=== PATIENT | male | born 1960 | race Native Hawaiian/Other Pacific Islander ===

== ENCOUNTER 2017-09-05 20:59 | Emergency (ER) | payer OTHER ==
[~2017-09-05] VITALS: Ht 170.2 cm; Wt 85.0 kg
[~2017-09-05 20:59] MED LIST: DICL50 PO; FISH1000 PO; GLUCTAB PO; LANTUSP SQ; LISI10TA PO; ROBA750T3 PO; SIMV40TA OR; TAB-TAB PO; TRAM50 PO
[2017-09-05 21:00] VITALS: BP 165/81; PULSE 90; RESP 16; TEMP 97.9; O2SAT 98
[2017-09-05] MEDS ORDERED: LISI10TA PO (21:22)
[2017-09-05] MEDS ORDERED: METF1000 PO (21:22)
[2017-09-05] MEDS ORDERED: DICL100T3 PO (21:22)
[2017-09-05] MEDS ORDERED: SIMV40TA PO (21:22)
[2017-09-05] MEDS ORDERED: LANTUS2P SQ (21:22)
[2017-09-05] MEDS ORDERED: OMEG100010 (21:22)
[2017-09-05] MEDS ORDERED: VOLT100T (21:22)
[2017-09-05] MEDS ORDERED: MULT-65 PO (21:22)
[2017-09-05 21:41] VITALS: O2SAT 96
--- NOTE | 2017-09-05 21:41 | PD ---
HPI Chief Complaint: Respiratory Symptoms Time Seen by Provider: 21:14 Travel History International Travel<30 days: No Contact w/Intl Traveler<30days: No Traveled to known affect area: No History of Present Illness HPI 57-year-old male that presents to the ED for evaluation of shortness of breath. Per patient she's had this shortness of breath for 3 days. No chest pain. Some congestion and cough with minimal. Per patient the service of or worsened today which is what prompted evaluation. Per patient gets worse with ambulating as well as with laying down. Lying down made it worse. No history of heart failure but he does have a history of diabetes and her blood pressure. He denies any injuries. He denies any abdominal pain. No nausea or vomiting. No bowel movement or urinary issues. No history of heart disease. No history of CHF. No history of COPD or asthma. No smoking history per patient. He does tell me that he recently went to [place] about 2 weeks ago on a plane. Symptoms did not start until 3 days ago. He has no allergies to medication. No other medical issues. Patient states compliance with his medications. PFSH Past Medical History Heart Rhythm Problems: No Cardiac Catheterization: No Cardiovascular Problems: Yes High Cholesterol: Yes Congestive Heart Failure: No Diabetes: Yes Patient Takes Glucophage: Yes Heparin Induced Thrombocytopen: No Hypertension: Yes Immunizations Current: Yes Tetanus Vaccination: < 5 Years Influenza Vaccination: Yes Past Surgical History Coronary Artery Bypass Graft: No Family History Family Myocardial Infarction: Yes (MOTHER OF [place] AGE 58) Social History Alcohol Use: No Tobacco Use: No Substance Use: No Allergies-Medications (Allergen,Severity, Reaction): Coded Allergies: No Known Allergies (Verified Adverse Reaction, Unknown, 09/05/17) Reported Meds & Prescriptions Reported Meds & Active Scripts Active Medrol Dosepak (Methylprednisolone) 4 Mg Dspk 4 Mg PO DIRECTED Per Pharmacist direction Zithromax Z-Rakesh (Azithromycin) 250 Mg Dspk 250 Mg PO DIRECTED 500 MG (2 tabs) day 1, then 1 tab days 2-5. Ventolin Hfa 18 GM Inh (Albuterol Sulfate) 90 Mcg/Act Aer 2 Puff INH Q4-6H PRN Reported Simvastatin 40 Mg Tab 40 Mg PO HS [place] 3 1000 mg ([place]-3 Fatty Acids) 300 Mg-1,000 Mg Cap Multi-Vitamin Daily (Multiple Vitamin) 1 Tab Tab 1 Tab PO DAILY Diclofenac Sodium ER 24 HR (Diclofenac Sodium) 100 Mg [place] 50 Mg PO TID Voltaren-Xr (Diclofenac Sodium) 100 Mg Tab.er.24h Lisinopril-Hctz 10-12.5 Mg Tab 1 Tab PO DAILY Lantus Inj (Insulin Glargine) 1,000 Unit/10 Ml Vial 30 Units SQ HS Metformin (Metformin HCl) 1,000 Mg Tab 1,000 Mg PO BIDPC Review of Systems Except as stated in HPI: all other systems reviewed are Neg Physical Exam Narrative GENERAL: Well-nourished, well-developed patient in no apparent distress. SKIN: Warm and dry. HEAD: Atraumatic. Normocephalic. EYES: Pupils equal and round reactive to light and accommodation. No scleral icterus. No injection or drainage. ENT: No nasal bleeding or discharge. Mucous membranes pink and moist. TMs are clear with no sign of infection or perforation. No mastoid tenderness. Ear canals are intact bilaterally. No lymphadenopathy. Nostril mucosa is red and moist with clear mucus noted. No sinus tenderness to palpation noted. Tonsils are not enlarged or swollen. No ulvua Deviation. Tongue is midline. NECK: Trachea midline. No JVD. No meningeal signs noted CARDIOVASCULAR: Regular rate and rhythm. RESPIRATORY: No accessory muscle use. Clear to auscultation. Breath sounds equal bilaterally. GASTROINTESTINAL: Abdomen soft, non-tender, nondistended. Hepatic and splenic margins not palpable. MUSCULOSKELETAL: Extremities without clubbing, cyanosis, or edema. No obvious deformities. Full range of motion of the upper and lower extremities bilaterally. 2+ pulses bilaterally. NEUROLOGICAL: Awake and alert. No obvious cranial nerve deficits. Motor grossly within normal limits. Five out of 5 muscle strength in the arms and legs. Normal speech. PSYCHIATRIC: Appropriate mood and affect; insight and judgment normal. Data Data Last Documented VS Vital Signs Date Time Temp Pulse Resp B/P (MAP) Pulse Ox O2 Delivery O2 Flow Rate FiO2 09/06/17 00:10 09/05/17 21:42 76 16 96 Room Air 09/05/17 21:00 97.9 Orders Orders Electrocardiogram (09/05/17 21:21) Complete Blood Count With Diff (09/05/17 21:21) Comprehensive Metabolic Panel (09/05/17 21:21) Ckmb (Isoenzyme) Profile (09/05/17 21:21) Troponin I (09/05/17 21:21) B-Type Natriuretic Peptide (09/05/17 21:21) Prothrombin Time / Inr (Pt) (09/05/17 21:21) Act Partial Throm Time (Ptt) (09/05/17 21:21) Influenzae A/B Antigen (09/05/17 21:21) Chest, Single Ap (09/05/17 21:21) Iv Access Insert/Monitor (09/05/17 21:21) Ecg Monitoring (09/05/17 21:21) Oximetry (09/05/17 21:21) D-Dimer (09/05/17 22:27) Albuterol-Ipratropium Neb (Duoneb Neb) (09/05/17 23:45) Ed Discharge Order (09/06/17 00:06) Labs Laboratory Tests Test 09/05/17 21:30 White Blood Count 7.2 TH/MM3 Red Blood Count 4.48 MIL/MM3 Hemoglobin 13.4 GM/DL Hematocrit 38.1 % Mean Corpuscular Volume 85.0 FL Mean Corpuscular Hemoglobin 29.9 PG Mean Corpuscular Hemoglobin Concent 35.2 % Red Cell Distribution Width 13.9 % Platelet Count 242 TH/MM3 Mean Platelet Volume 7.0 FL Neutrophils (%) (Auto) 53.1 % Lymphocytes (%) (Auto) 32.9 % Monocytes (%) (Auto) 7.3 % Eosinophils (%) (Auto) 6.1 % Basophils (%) (Auto) 0.6 % Neutrophils # (Auto) 3.8 TH/MM3 Lymphocytes # (Auto) 2.4 TH/MM3 Monocytes # (Auto) 0.5 TH/MM3 Eosinophils # (Auto) 0.4 TH/MM3 Basophils # (Auto) 0.0 TH/MM3 CBC Comment DIFF FINAL Differential Comment Prothrombin Time 10.3 SEC Prothromb Time International Ratio 1.0 RATIO Activated Partial Thromboplast Time 25.9 SEC D-Dimer Quantitative (PE/DVT) 0.28 MG/L FEU Blood Urea Nitrogen 13 MG/DL Creatinine 1.12 MG/DL Random Glucose 87 MG/DL Total Protein 7.3 GM/DL Albumin 3.9 GM/DL Calcium Level 8.6 MG/DL Alkaline Phosphatase 78 U/L Aspartate Amino Transf (AST/SGOT) 27 U/L Alanine Aminotransferase (ALT/SGPT) 37 U/L Total Bilirubin 0.4 MG/DL Sodium Level 138 MEQ/L Potassium Level 3.7 MEQ/L Chloride Level 104 MEQ/L Carbon Dioxide Level 23.6 MEQ/L Anion Gap 10 MEQ/L Estimat Glomerular Filtration Rate 67 ML/MIN Total Creatine Kinase 83 U/L Troponin I LESS THAN 0.02 NG/ML B-Type Natriuretic Peptide 3 PG/ML MDM Medical Decision Making Medical Screen Exam Complete: Yes Emergency Medical Condition: Yes Medical Record Reviewed: Yes Interpretation(s) EKG shows sinus rhythm with no sign of acute ischemia or arrhythmia. Read by me and attending. Differential Diagnosis Shortness of breath versus asthma versus COPD versus pneumonia versus pulmonary embolism versus ACS versus CHF versus influenza Narrative Course 57-year-old male that presents to the ED for evaluation of shortness of breath. Patient was properly examined and was found to have signs and symptoms consistent appears to be shortness of breath of unclear etiology. Patient does have risk factors for pulmonary embolism as well as heart disease. Recommend labs and imaging for this. Labs and imaging still pending at the writing of this note. Case signed out to my attending pending disposition. Scripts Methylprednisolone Dosepak (Medrol Dosepak) 4 Mg Dspk 4 MG PO DIRECTED, #1 DSPK 0 Refills Per Pharmacist direction Prov: Jordyn Tabares MD 09/06/17 Azithromycin (Zithromax Z-Rakesh) 250 Mg Dspk 250 MG PO DIRECTED for Infection, #1 DSPK 0 Refills 500 MG (2 tabs) day 1, then 1 tab days 2-5. Prov: Jordyn Tabares MD 09/06/17 Albuterol 18 GM Inh (Ventolin Hfa 18 GM Inh) 90 Mcg/Act Aer 2 PUFF INH Q4-6H Y for SHORTNESS OF BREATH, #1 INHALER 0 Refills Prov: Jordyn Tabares MD 09/06/17 Chucho Peraza Sep 05, 2017 21:41
[2017-09-05 21:42] VITALS: BP 145/77; PULSE 76; RESP 16; O2SAT 96
--- NOTE | 2017-09-05 21:58 | RADRPT ---
EXAM DATE/TIME: 09/05/2017 21:48 [facility] COMPARISON: CHEST SINGLE AP, March 19, 2011, 11:45. INDICATIONS : Shortness of breath. MEDICAL HISTORY : Hypertension. Diabetes mellitus type II. SURGICAL HISTORY : None. ENCOUNTER: Initial ACUITY: 1 day PAIN SCORE: 0/10 LOCATION: Bilateral chest FINDINGS: A single view of the chest demonstrates the lungs to be symmetrically aerated without evidence of mas s, infiltrate or effusion. The cardiomediastinal contours are unremarkable. Osseous structures are intact. CONCLUSION: No acute disease. Bright Maria MD on September 05, 2017 at 21:55 Board Certified Radiologist. This report was verified electronically.
[2017-09-05 22:12] LABS: AUTOMATED NEUTROPHIL # 3.8 TH/MM3 (1.8-7.7); BASOPHIL % 0.6 % (0.0-2.0); EOSINOPHIL # 0.4 TH/MM3 (0-0.4); EOSINOPHIL % 6.1 % (0.0-4.0); HEMATOCRIT 38.1 % (39.0-51.0); HEMOGLOBIN 13.4 GM/DL (13.0-17.0); LYMPH % 32.9 % (9.0-44.0); LYMPHOCYTE # 2.4 TH/MM3 (1.0-4.8); MEAN CORPUSCULAR HEMOGLOBIN 29.9 PG (27.0-34.0); MEAN CORPUSCULAR HGB CONC 35.2 % (32.0-36.0); MONO % 7.3 % (0.0-8.0); MONOCYTE # 0.5 TH/MM3 (0-0.9); NEUT % 53.1 % (16.0-70.0); PLATELET COUNT 242 TH/MM3 (150-450); RED BLOOD COUNT 4.48 MIL/MM3 (4.50-5.90); RED CELL DISTRIBUTION WIDTH 13.9 % (11.6-17.2); WHITE BLOOD COUNT 7.2 TH/MM3 (4.0-11.0)
[2017-09-05 22:36] LABS: ALT (GPT) 37 U/L (12-78)
[2017-09-05 22:41] LABS: ALBUMIN 3.9 GM/DL (3.4-5.0); ALKALINE PHOSPHATASE 78 U/L (45-117); AST (GOT) 27 U/L (15-37); BICARBONATE 23.6 MEQ/L (21.0-32.0); BLOOD UREA NITROGEN 13 MG/DL (7-18); CALCIUM 8.6 MG/DL (8.5-10.1); CHLORIDE 104 MEQ/L (98-107); CREATININE 1.12 MG/DL (0.60-1.30); GLOMERULAR FILTRATION RATE 67 ML/MIN (>89); GLUCOSE,RANDOM 87 MG/DL (74-106); SODIUM (NA) 138 MEQ/L (136-145); TOTAL BILIRUBIN ADULT 0.4 MG/DL (0.2-1.0); TOTAL PROTEIN 7.3 GM/DL (6.4-8.2); TROPONIN I LESS THAN 0.02 NG/ML (0.02-0.05)
[2017-09-05 22:54] LABS: PROTHROMBIN TIME - PATIENT 10.3 SEC (9.8-11.6)
[2017-09-05] MEDS ORDERED: RESP: ALBUTEROL 2.5 MG/IPRATROPIUM 0.5 MG NEB (SCH) NEB ONE (23:45)
[2017-09-06] MEDS ORDERED: ZITHTAB PO (00:12)
[2017-09-06] MEDS ORDERED: MEDR4PAK PO (00:12)
[2017-09-06] MEDS ORDERED: VENTAER INH (00:12)
--- NOTE | 2017-09-06 00:13 | PD ---
Physical Exam Date Seen by Provider: Sep 06, 2017 Time Seen by Provider: 23:10 Narrative Accepted in transfer of care GENERAL: Well-developed well-nourished male in no acute distress no respiratory distress SKIN: Warm and dry. HEAD: Normocephalic. EYES: No scleral icterus. No injection or drainage. NECK: Supple, trachea midline. No JVD or lymphadenopathy. CARDIOVASCULAR: Regular rate and rhythm without murmurs, gallops, or rubs. RESPIRATORY: Breath sounds equal bilaterally mildly diminished bilaterally. No accessory muscle use. GASTROINTESTINAL: Abdomen soft, non-tender, nondistended. MUSCULOSKELETAL: No cyanosis, or edema. BACK: Nontender without obvious deformity. No CVA tenderness. Data Data Last Documented VS Vital Signs Date Time Temp Pulse Resp B/P (MAP) Pulse Ox O2 Delivery O2 Flow Rate FiO2 09/05/17 21:42 76 16 145/77 (99) 96 Room Air 09/05/17 21:00 97.9 Orders Orders Electrocardiogram (09/05/17 21:21) Complete Blood Count With Diff (09/05/17 21:21) Comprehensive Metabolic Panel (09/05/17 21:21) Ckmb (Isoenzyme) Profile (09/05/17 21:21) Troponin I (09/05/17 21:21) B-Type Natriuretic Peptide (09/05/17 21:21) Prothrombin Time / Inr (Pt) (09/05/17 21:21) Act Partial Throm Time (Ptt) (09/05/17 21:21) Influenzae A/B Antigen (09/05/17 21:21) Chest, Single Ap (09/05/17 21:21) Iv Access Insert/Monitor (09/05/17 21:21) Ecg Monitoring (09/05/17 21:21) Oximetry (09/05/17 21:21) D-Dimer (09/05/17 22:27) Albuterol-Ipratropium Neb (Duoneb Neb) (09/05/17 23:45) Ed Discharge Order (09/06/17 00:06) Labs Laboratory Tests Test 09/05/17 21:30 White Blood Count 7.2 TH/MM3 Red Blood Count 4.48 MIL/MM3 Hemoglobin 13.4 GM/DL Hematocrit 38.1 % Mean Corpuscular Volume 85.0 FL Mean Corpuscular Hemoglobin 29.9 PG Mean Corpuscular Hemoglobin Concent 35.2 % Red Cell Distribution Width 13.9 % Platelet Count 242 TH/MM3 Mean Platelet Volume 7.0 FL Neutrophils (%) (Auto) 53.1 % Lymphocytes (%) (Auto) 32.9 % Monocytes (%) (Auto) 7.3 % Eosinophils (%) (Auto) 6.1 % Basophils (%) (Auto) 0.6 % Neutrophils # (Auto) 3.8 TH/MM3 Lymphocytes # (Auto) 2.4 TH/MM3 Monocytes # (Auto) 0.5 TH/MM3 Eosinophils # (Auto) 0.4 TH/MM3 Basophils # (Auto) 0.0 TH/MM3 CBC Comment DIFF FINAL Differential Comment Prothrombin Time 10.3 SEC Prothromb Time International Ratio 1.0 RATIO Activated Partial Thromboplast Time 25.9 SEC D-Dimer Quantitative (PE/DVT) 0.28 MG/L FEU Blood Urea Nitrogen 13 MG/DL Creatinine 1.12 MG/DL Random Glucose 87 MG/DL Total Protein 7.3 GM/DL Albumin 3.9 GM/DL Calcium Level 8.6 MG/DL Alkaline Phosphatase 78 U/L Aspartate Amino Transf (AST/SGOT) 27 U/L Alanine Aminotransferase (ALT/SGPT) 37 U/L Total Bilirubin 0.4 MG/DL Sodium Level 138 MEQ/L Potassium Level 3.7 MEQ/L Chloride Level 104 MEQ/L Carbon Dioxide Level 23.6 MEQ/L Anion Gap 10 MEQ/L Estimat Glomerular Filtration Rate 67 ML/MIN Total Creatine Kinase 83 U/L Troponin I LESS THAN 0.02 NG/ML B-Type Natriuretic Peptide 3 PG/ML [facility] Medical Record Reviewed: Yes Supervised Visit with LILLIAN: Yes Interpretation(s) EKG: Normal sinus rhythm rate [address] elevation injury pattern or ectopy Last Impressions Chest X-Ray 09/05/172120 Signed Impressions: Service Date/Time: Tuesday, September 05, 2017 21:48 - CONCLUSION: No acute disease. Bright Maria MD CBC & BMP Diagram 09/05/17 21:30 Total Protein 7.3, Albumin 3.9, Calcium Level 8.6, Alkaline Phosphatase 78, Aspartate Amino Transf (AST/SGOT) 27, Alanine Aminotransferase (ALT/SGPT) 37, Total Bilirubin 0.4 Vital Signs Date Time Temp Pulse Resp B/P (MAP) Pulse Ox O2 Delivery O2 Flow Rate FiO2 09/05/17 21:42 76 16 145/77 (99) 96 Room Air 09/05/17 21:41 96 Room Air 09/05/17 21:22 97 Room Air 09/05/17 21:00 97.9 90 16 165/81 (109) 98 Room Air Narrative Course Well-developed well-nourished male with history of diabetes and hypertension and cardiac catheterization with normal coronary vessels in the past with recent chest congestion and sinus pressure and congestion presents for complaint of feeling shortness of breath without any chest pain or pleuritic chest pain noted to have recent long distance travel to [place] presents for further evaluation; "I have had a cold and cough". EKG lab values and d-dimer are found to be grossly normal range. On auscultation patient has mild diminished breath sounds bilaterally. Patient given DuoNeb updraft 1 and lung sounds are markedly clear and patient states symptoms have improved significantly. Patient this time is stable for outpatient management he is encouraged to follow-up with his primary care provider this week and call office in a.m. to schedule follow-up appointment. Patient restarted on a Medrol Dosepak provided an albuterol inhaler prescription and Z-pack for bronchitis. Diagnosis Primary Impression: Bronchitis Referrals: Primary Care Physician 1 day Patient Instructions: General Instructions Additional Instruction: Increase fluid hydration Take acetaminophen/Tylenol every 4 hours as needed for minor pain or for fever 100.4F or greater Follow-up with primary care provider call office in a.m. to schedule follow-up appointment Take medications as prescribed While on steroid therapy monitor blood sugars closely Return to the emergency department for any concerns or change in condition continue chronic medications as chronically prescribed Med/Other Pt SpecificInfo: Prescription(s) given Scripts Methylprednisolone Dosepak (Medrol Dosepak) 4 Mg Dspk 4 MG PO DIRECTED, #1 DSPK 0 Refills Per Pharmacist direction Prov: Jordyn Tabares MD 09/06/17 Azithromycin (Zithromax Z-Rakesh) 250 Mg Dspk 250 MG PO DIRECTED for Infection, #1 DSPK 0 Refills 500 MG (2 tabs) day 1, then 1 tab days 2-5. Prov: Jordyn Tabares MD 09/06/17 Albuterol 18 GM Inh (Ventolin Hfa 18 GM Inh) 90 Mcg/Act Aer 2 PUFF INH Q4-6H Y for SHORTNESS OF BREATH, #1 INHALER 0 Refills Prov: Jordyn Tabares MD 09/06/17 Jordyn Tabares MD Sep 06, 2017 00:13
--- NOTE | 2017-09-06 18:53 | EKG ---
Date Performed: 09/05/2017 Time Performed: 21:33:20 PTAGE: 57 years EKG: Sinus rhythm NONSPECIFIC T-WAVE ABNORMALITY BORDERLINE ECG INTERPRETATION BASED ON A DEFAULT AGE OF 40 YEARS PREVIOUS TRACING 03/19/2011 @ 17.50.04 Compared to prior tracing no significant change DOCTOR: Betsy Myers Interpretating Date/Time 09/06/2017 18:52:21
== END 2017-09-06 00:31 | disposition home or self-care (01) ==
LOC: NEPC 20:59
DX: J40 Bronchitis, not specified as acute or chronic (principal); E11.9 Type 2 diabetes mellitus without complications; E78.00 Pure hypercholesterolemia, unspecified; I10 Essential (primary) hypertension; R94.31 Abnormal electrocardiogram [ECG] [EKG]; Z79.4 Long term (current) use of insulin; Z79.899 Other long term (current) drug therapy
CPT/HCPCS: 71045; 80053; 82550; 83880; 84484; 85025; 85379; 85610; 85730; 87804; 93005; 94664